=== PATIENT | female | born 1975 | race Two or more races ===

== ENCOUNTER → 2024-08-28 | Outpatient (CLI) | payer MEDICAID, SELFPAY ==
--- NOTE | 2024-08-28 07:30 | XR_ITS ---
Examination: Breast ultrasound complete, bilateral Date and time of exam: August 28, 2024 0742 hrs. Comparison bilateral breast sonography December 11, 2020 Indications: Mammogram June 07, 2024 12 mm focal asymmetry retroareolar region right breast, 15 mm focal asymmetry upper outer right breast, 20 mm focal asymmetry upper outer left breast anterior depth Technique: Real-time grayscale ultrasonographic imaging bilateral breasts, including all 4 quadrants as well as nipple retroareolar and axillary regions. Findings: Abdomen images right breast 5:00 cyst 4 x 4 millimeter 11:00 cyst 15 x 8 mm No solid nodules Sonographic images left breast 1:00 cyst 6 x 5 mm No solid nodules Impression: BI-RADS Category 2: Benign findings
--- NOTE | 2024-08-28 08:30 | XR_ITS ---
Examination: Diagnostic digital mammography, bilateral Computer aided detection 3-D breast Tomosynthesis, bilateral Date and time of exam: August 28, 2024 0759 hrs. Indications: Mammogram June 07, 2024 12 mm focal asymmetry retroareolar region right breast 15 mm focal asymmetry upper outer right breast 20 mm focal asymmetry upper outer left breast Technique: Nonmagnified MLO, CC views of the breasts to been obtained, reconstructed from 3-D Tomosynthesis images. R2 computer aided detection program utilized for evaluation of suspicious masses and/or abnormal calcifications. 3-D Tomosynthesis images obtained. Findings: The breasts are heterogeneously dense, which may obscure small masses Spot compression films do not confirm suspicious masses either breast Bilateral breast sonography today indicates bilateral benign breast cysts no solid nodules Impression: BI-RADS Category 2: Benign findings Recommend yearly follow-up mammography.
== END | disposition home or self-care (01) ==
PROVIDERS: Referring Provider Nurse Practitioner Family; Visit Provider Nurse Practitioner Family
DX: R92.323 Mammographic fibroglandular density, bilateral breasts (principal); N60.01 Solitary cyst of right breast; N60.02 Solitary cyst of left breast
CPT/HCPCS: 76641; 77062; 77066; G0279

== ENCOUNTER → 2025-07-23 | Outpatient (CLI) | payer MEDICAID, SELFPAY ==
--- NOTE | 2025-07-23 08:36 | XR_ITS ---
EXAMINATION: Bilateral wrists 6 views TECHNIQUE: AP oblique lateral each wrist total 6 views Date and time: July 23, 2025, 0859 hours INDICATIONS: Bilateral wrist pain 2 years, diagnosis carpal tunnel syndrome FINDINGS: Bilateral mild to moderate osteoarthritis first carpometacarpal joints No erosive arthritis No fractures or dislocations No avascular necrosis IMPRESSION: Bilateral mild to moderate osteoarthritis first carpometacarpal joints
--- NOTE | 2025-07-23 08:36 | XR_ITS ---
Examination: Bilateral hands, 6 views. Technique: AP, Oblique, Lateral each hand total 6 views Date and time of exam: July 23, 2025, 0852 hours INDICATIONS: Bilateral hand pain 2 years. FINDINGS: Moderate juxta-articular bone demineralization. No fracture or dislocation involving either hand No erosive or other significant arthritic change involving either hand No foreign bodies IMPRESSION: No fracture or dislocation involving either hand No erosive or other significant arthritic change involving either hand
== END | disposition home or self-care (01) ==
LOC: CDIM 08:30
PROVIDERS: PCP Nurse Practitioner Family
DX: M79.642 Pain in left hand (principal); M79.641 Pain in right hand; M18.0 Bilateral primary osteoarthritis of first carpometacarpal joints
CPT/HCPCS: 73110; 73130

== ENCOUNTER 2025-08-09 09:03 | Emergency (ER) | payer MEDICAID, SELFPAY ==
[2025-08-09 09:55] VITALS: PULSE 82; RESP 18; O2SAT 98
[2025-08-09 10:27] VITALS: BP 125/87; PULSE 83; RESP 18; TEMP 36.8; O2SAT 98
[2025-08-09 10:28] VITALS: BMI 25.6
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
[2025-08-09] MEDS: KETOROLAC INJ 30 MG/ML VIAL IM (11:33)
== END 2025-08-09 13:16 | disposition left against medical advice (07) ==
LOC: SERX 10:47
PROVIDERS: Emergency Provider Physician Assistant; PCP Nurse Practitioner Family
DX: M54.2 Cervicalgia (principal); R51.9 Headache, unspecified; M54.50 Low back pain, unspecified; V89.2XXA Person injured in unspecified motor-vehicle accident, traffic, initial encounter; Z53.29 Procedure and treatment not carried out because of patient's decision for other reasons
CPT/HCPCS: 70450; 72100; 72125; 96372; 99283; J1885